=== PATIENT | female | born 1980 | race Caucasian/White ===

== ENCOUNTER → 2023-12-13 09:04 | Outpatient (REF) | payer BC, SELFPAY | LOC: RAD 09:04 | PROVIDERS: ATTENDING PHYSICIAN Obstetrics & Gynecology Gynecology; FAMILY PHYSICIAN Family Medicine | DX: N94.6 Dysmenorrhea, unspecified (principal) | CPT/HCPCS: 76830; 76856 ==

== ENCOUNTER → 2023-12-14 09:52 | Outpatient (REF) | payer BC, SELFPAY | LOC: WDC 09:52 | PROVIDERS: ATTENDING PHYSICIAN Obstetrics & Gynecology Gynecology; FAMILY PHYSICIAN Family Medicine | DX: Z12.31 Encounter for screening mammogram for malignant neoplasm of breast (principal) | CPT/HCPCS: 77063; 77067 ==

== ENCOUNTER → 2024-02-25 09:37 | Outpatient (REF) | payer BC, SELFPAY | LOC: WDC 09:37 | PROVIDERS: ATTENDING PHYSICIAN Obstetrics & Gynecology Gynecology; FAMILY PHYSICIAN Family Medicine | DX: R92.2 Inconclusive mammogram (principal); R92.30 Dense breasts, unspecified | CPT/HCPCS: 76641 ==

== ENCOUNTER → 2024-05-13 10:14 | Outpatient (REF) | payer BC, SELFPAY | LOC: HWRAD 10:14 | PROVIDERS: ATTENDING PHYSICIAN Obstetrics & Gynecology; FAMILY PHYSICIAN Family Medicine | DX: Z30.41 Encounter for surveillance of contraceptive pills (principal) | CPT/HCPCS: 76830; 76856 ==

== ENCOUNTER → 2024-07-11 10:50 | Outpatient (REF) | payer BC, SELFPAY | LOC: RAD 10:50 | PROVIDERS: ATTENDING PHYSICIAN Family Medicine; OTHER PHYSICIAN Obstetrics & Gynecology; REFERRING PHYSICIAN Internal Medicine Cardiovascular Disease | DX: R06.09 Other forms of dyspnea (principal) | CPT/HCPCS: 71046 ==

== ENCOUNTER → 2024-07-30 07:58 | Outpatient (REF) | payer BC, SELFPAY | LOC: RCS 07:58 | PROVIDERS: ATTENDING PHYSICIAN Family Medicine | DX: R07.89 Other chest pain (principal) | CPT/HCPCS: 93306 ==

== ENCOUNTER → 2024-09-02 12:35 | Outpatient (REF) | payer BC, SELFPAY | LOC: RCS 12:35 | PROVIDERS: ATTENDING PHYSICIAN Internal Medicine Cardiovascular Disease; FAMILY PHYSICIAN Family Medicine | DX: Z01.818 Encounter for other preprocedural examination (principal); R07.2 Precordial pain; R06.09 Other forms of dyspnea | CPT/HCPCS: 93017; 93350; Q9957 ==

== ENCOUNTER → 2024-12-14 13:48 | Outpatient (REF) | payer BC, SELFPAY | LOC: RAD 13:48 | PROVIDERS: ATTENDING PHYSICIAN Internal Medicine Gastroenterology; FAMILY PHYSICIAN Family Medicine | DX: K59.00 Constipation, unspecified (principal) | CPT/HCPCS: 74018 ==

== ENCOUNTER → 2024-12-24 11:50 | Outpatient (REF) | payer BC, SELFPAY | LOC: WDC 11:50 | PROVIDERS: ATTENDING PHYSICIAN Obstetrics & Gynecology; FAMILY PHYSICIAN Family Medicine | DX: Z12.31 Encounter for screening mammogram for malignant neoplasm of breast (principal) | CPT/HCPCS: 77063; 77067 ==

== ENCOUNTER → 2024-12-30 06:43 | Outpatient (REF) | payer BC, SELFPAY | LOC: MRI 3T 06:43 | PROVIDERS: ATTENDING PHYSICIAN Psychiatry & Neurology Neurology; FAMILY PHYSICIAN Family Medicine | DX: G95.9 Disease of spinal cord, unspecified (principal) | CPT/HCPCS: 72141 ==

== ENCOUNTER → 2025-05-10 08:55 | Outpatient (REF) | payer BC, SELFPAY | LOC: WDC 08:55 | PROVIDERS: ATTENDING PHYSICIAN Obstetrics & Gynecology; FAMILY PHYSICIAN Family Medicine | DX: R92.2 Inconclusive mammogram (principal); R92.333 Mammographic heterogeneous density, bilateral breasts | CPT/HCPCS: 76641 ==